=== PATIENT | male | born 1980 | race Caucasian/White ===

== ENCOUNTER → 2016-09-07 | Outpatient (REF) | payer OTHER ==
[2016-09-07 13:04] LABS: BASO % 0.3 % (0.0-1.0); EOS # 0.2 K/mm3 (0.0-0.50); EOS % 1.5 % (0.0-3.0); LARGE UNSTAINED CELL # 0.2 K/mm3 (0.0-0.4); LARGE UNSTAINED CELL % 1.1 % (0.0-4.0); LYMPH # 2.4 K/mm3 (1.5-4.5); LYMPH % 14.4 % (24.0-44.0); MEAN CORPUSCULAR HEMOGLOBIN 30.1 pg (27.0-33.0); MEAN CORPUSCULAR HGB CONC 33.1 g/dl (32.0-36.5); MEAN CORPUSCULAR VOLUME 90.8 fl (80.0-96.0); MONO # 0.8 K/mm3 (0.0-0.8); MONO % 5.4 % (0.0-5.0); NEUTROPHILS # 12.1 K/mm3 (1.8-7.7); NEUTROPHILS % 77.3 % (36.0-66.0); PLATELET COUNT, AUTOMATED 335 k/mm3 (150-450); RED CELL DISTRIBUTION WIDTH 13.4 % (11.5-14.5); WHITE BLOOD COUNT 15.7 K/mm3 (4.0-10.0)
== END ==
LOC: M SFHCPLAZ 09:14
PROVIDERS: ATTEND Physician Assistant Medical
DX: Z85.47 Personal history of malignant neoplasm of testis (principal); E78.00 Pure hypercholesterolemia, unspecified

== ENCOUNTER → 2016-09-09 | Outpatient (REF) | payer OTHER | LOC: M SFHCPLAZ 11:04 | PROVIDERS: ATTEND Physician Assistant Medical | DX: J02.9 Acute pharyngitis, unspecified (principal) ==

== ENCOUNTER → 2016-09-14 | Outpatient (REF) | payer OTHER ==
[2016-09-14 18:13] LABS: BASO % 0.4 % (0.0-1.0); EOS # 0.3 K/mm3 (0.0-0.50); EOS % 3.4 % (0.0-3.0); LARGE UNSTAINED CELL # 0.1 K/mm3 (0.0-0.4); LARGE UNSTAINED CELL % 1.5 % (0.0-4.0); LYMPH # 2.4 K/mm3 (1.5-4.5); MEAN CORPUSCULAR HEMOGLOBIN 29.1 pg (27.0-33.0); MEAN CORPUSCULAR HGB CONC 32.8 g/dl (32.0-36.5); MEAN CORPUSCULAR VOLUME 88.8 fl (80.0-96.0); MONO # 0.5 K/mm3 (0.0-0.8); MONO % 5.3 % (0.0-5.0); NEUTROPHILS # 5.5 K/mm3 (1.8-7.7); NEUTROPHILS % 63.4 % (36.0-66.0); PLATELET COUNT, AUTOMATED 322 k/mm3 (150-450); RED CELL DISTRIBUTION WIDTH 13.5 % (11.5-14.5); WHITE BLOOD COUNT 8.6 K/mm3 (4.0-10.0)
== END ==
LOC: M SFHCPLAZ 12:51
PROVIDERS: ATTEND Physician Assistant Medical
DX: D72.821 Monocytosis (symptomatic) (principal)

== ENCOUNTER → 2017-01-16 | Outpatient (REF) | payer OTHER, MEDICAID ==
[2017-01-23 08:07] LABS: BENZODIAZEPINES, URINE SCREEN Negative ng/mL (Cutoff=200); BENZOYLECGONINE (GC/MS) 459 ng/mL (Cutoff=150); METHADONE, URINE SCREEN Negative ng/mL (Cutoff=300); OPIATES, URINE Positive ng/mL (Cutoff=300); pH, URINE 5.7 (4.5-8.9)
== END ==
LOC: M SFHCPLAZ 11:27
PROVIDERS: ATTEND Physician Assistant Medical
DX: M51.36 Other intervertebral disc degeneration, lumbar region (principal)

== ENCOUNTER → 2017-05-22 | Outpatient (CLI) | payer OTHER ==
[2017-05-22 08:51] LABS: MEAN CORPUSCULAR HEMOGLOBIN 29.4 pg (27.0-33.0); MEAN CORPUSCULAR HGB CONC 33.5 g/dl (32.0-36.5); MEAN CORPUSCULAR VOLUME 87.9 fl (80.0-96.0); PLATELET COUNT, AUTOMATED 399 10^3/uL (150-450); RED CELL DISTRIBUTION WIDTH 14.1 % (11.5-14.5)
--- NOTE | 2017-05-22 08:54 | REP ---
Clinical: Hypertension . Comparison: 01/21/2010 . Technique: PA and lateral. Findings: The mediastinum and cardiac silhouette are normal. The lung love are clear and without acute consolidation, effusion, or pneumothorax. The skeletal structures are intact and normal. Impression: 1. No acute cardiopulmonary process. Signed by Josue Padilla MD 05/22/2017 08:45 A
[2017-05-22 09:32] LABS: ALBUMIN 3.8 GM/DL (3.2-5.2); ALBUMIN/GLOBULIN RATIO 1.19 (1.00-1.93); ALKALINE PHOSPHATASE 98 U/L (45-117); ALT/SGPT 25 U/L (12-78); ANION GAP 8 MEQ/L (8-16); AST/SGOT 12 U/L (7-37); BILIRUBIN,TOTAL 0.5 MG/DL (0.2-1.0); BLOOD UREA NITROGEN 13 MG/DL (7-18); CALCIUM LEVEL 9.2 MG/DL (8.5-10.1); CARBON DIOXIDE LEVEL 24 MEQ/L (21-32); CHLORIDE LEVEL 108 MEQ/L (98-107); CHOLESTEROL LEVEL 320 MG/DL (<200); CREATININE FOR GFR 0.88 MG/DL (0.70-1.30); GLOMERULAR FILTRATION RATE > 60.0 (>60); GLUCOSE, FASTING 100 MG/DL (70-105); POTASSIUM SERUM 4.2 MEQ/L (3.5-5.1); SODIUM LEVEL 140 MEQ/L (136-145); TRIGLYCERIDES LEVEL 225 MG/DL (<150)
--- NOTE | 2017-05-22 21:09 | ECGEPIP ---
Stationary ECG Study [facility] Test Date: 2017-05-22 Pat Name: GAMA MINER Department: Room: - Gender: M Customer Relations Coordinator: JOLLY : 1980 Requested By: Eboni Salgado Order Number: [id number] Reading MD: Dashawn Junior Measurements Intervals [place] Rate: 80 P: 48 MI: 136 QRS: 70 QRSD: 102 T: 42 QT: 363 QTc: 420 Interpretive Statements Normal sinus rhythm Early repolarization Comparison tracing not on file Electronically Signed On 05-22-2017 21:08:47 EST by Dashawn Junior
== END ==
LOC: M LAB 08:01
PROVIDERS: ATTEND Family Medicine
DX: I10 Essential (primary) hypertension (principal)

== ENCOUNTER → 2019-09-07 | Outpatient (CLI) | payer MEDICAID, OTHER ==
[~2019-09-07] MED LIST: BACT800T5 PO; HYDR-3716 PO; SIMV40TA20 PO
--- NOTE | 2019-09-07 13:52 | REP ---
Lumbar spine series: Five views. History: Degenerative disc disease. Comparison study: June 02, 2008. Findings: Lumbar vertebral body heights are preserved. There is straightening of the normal lumbar lordosis. There is disc space narrowing at L5-S1 somewhat more pronounced than on the 2007 prior study with mild sclerosis and spur formation. Minimal spurring is seen at 4-5. Disc spaces are otherwise maintained. Pedicles and posterior elements are intact. Sacrum and SI joints are unremarkable. Psoas margins are symmetric. There are surgical clips in the central abdomen. Impression: Degenerative disc changes at L5-S1 and L4-5, mild in degree. Otherwise negative. Electronically Signed by Enmanuel Thomas MD 09/07/2019 03:12 P
== END ==
LOC: M RAD 11:10
PROVIDERS: ATTEND Family Medicine
DX: M51.37 Other intervertebral disc degeneration, lumbosacral region (principal); M51.36 Other intervertebral disc degeneration, lumbar region; M54.30 Sciatica, unspecified side

== ENCOUNTER 2021-03-28 09:36 | Emergency (ER) | payer OTHER ==
[~2021-03-28] VITALS: Ht 175.3 cm; Wt 85.1 kg
[2021-03-28] MEDS ORDERED: MELO7.5T35 (09:44)
[2021-03-28] MEDS ORDERED: NS 1,000 ML IV ONE (10:25)
--- NOTE | 2021-03-28 10:45 | REP ---
INDICATION: upper abd pain into back ro free air. COMPARISON: None. FINDINGS: Supine and upright views of the abdomen show the intestinal gas pattern to be nonspecific. Gas and stool is seen throughout the colon within the rectosigmoid region. The organ silhouettes insofar as delineated appear unremarkable. No abdominal calcific densities are seen within the abdomen or pelvis. The accompanying single frontal view of the chest shows no free subdiaphragmatic air, cardiomegaly, infiltrates or effusions. IMPRESSION: Nonspecific intestinal gas pattern. <Electronically signed by Edward Murray > 03/28/21 [id number]
[2021-03-28 10:53] LABS: BASO % 0.3 % (0.0-1.0); EOS # 0.1 10^3/uL (0.0-0.5); EOS % 0.8 % (0.0-3.0); HEMATOCRIT 47.9 % (42.0-52.0); HEMOGLOBIN 15.9 g/dl (13.5-17.5); LYMPH # 1.9 10^3/uL (1.5-5.0); LYMPH % 14.6 % (24.0-44.0); MEAN CORPUSCULAR HEMOGLOBIN 28.9 pg (27.0-33.0); MEAN CORPUSCULAR HGB CONC 33.2 g/dl (32.0-36.5); MEAN CORPUSCULAR VOLUME 87.1 fl (80.0-96.0); MONO # 0.9 10^3/uL (0.0-0.8); MONO % 6.5 % (2.0-8.0); NEUTROPHILS # 10.1 10^3/uL (1.5-8.5); NEUTROPHILS % 77.4 % (36.0-66.0); PLATELET COUNT, AUTOMATED 360 10^3/uL (150-450); WHITE BLOOD COUNT 13.1 10^3/uL (4.0-10.0)
[2021-03-28 11:29] LABS: ALBUMIN 3.8 GM/DL (3.2-5.2); ALT/SGPT 17 U/L (12-78); BILIRUBIN,DIRECT 0.1 MG/DL (0.0-0.2); BILIRUBIN,TOTAL 0.5 MG/DL (0.2-1.0); BLOOD UREA NITROGEN 15 MG/DL (7-18); CARBON DIOXIDE LEVEL 28 MEQ/L (21-32); CHLORIDE LEVEL 110 MEQ/L (98-107); CK-MB VALUE MASS < 1.0 NG/ML (<3.6); CPK CREATINE PHOSPHOKINASE 97 U/L (39-308); CREATININE FOR GFR 0.91 MG/DL (0.70-1.30); GLOMERULAR FILTRATION RATE > 60.0 (>60); GLUCOSE, FASTING 109 MG/DL (70-100); LIPASE 56 U/L (73-393); MB/CK RELATIVE INDEX 1.03 (< OR =4); POTASSIUM SERUM 4.3 MEQ/L (3.5-5.1); SODIUM LEVEL 141 MEQ/L (136-145); TOTAL PROTEIN 7.6 GM/DL (6.4-8.2); TROPONIN I < 0.02 NG/ML (< 0.10)
[2021-03-28] MEDS ORDERED: ISOVUE-370 76% 100ML VIAL As Ordered ONE (11:44)
--- NOTE | 2021-03-28 12:08 | REP ---
INDICATION: LLQ pain, nausea vomiting. COMPARISON: None. TECHNIQUE: Standard helical technique after the intravenous administration of 100 cc Isovue 370 FINDINGS: The lung bases are clear The liver, gallbladder, spleen, pancreas, adrenal glands, and kidneys are within normal limits. The abdominal aorta and para-aortic regions are within normal limits. The bowel loops and the mesenteries are within normal limits. There is minimal descending colon and sigmoid colon diverticulosis. There is no free fluid or free air. The abdominal aorta and para-aortic regions are within normal limits. There is no evidence of a mass or adenopathy. The osseous structures are within normal limits. A small nodule seen in the subcutaneous adipose tissue of the left lumbar region consistent with a sebaceous cyst. IMPRESSION: No acute abnormalities. <Electronically signed by Edward Murray > 03/28/21 [id number]
[2021-03-28] MEDS ORDERED: ONDA4TAB6 PO (12:51)
[2021-03-28] MEDS ORDERED: KETOROLAC 30 MG/ML 1ML VIAL IV ONE (13:00)
[2021-03-28] MEDS ORDERED: ONDANSETRON 4MG/2ML VIAL IV ONE (13:00)
[2021-03-28 13:22] VITALS: BP 134/78
== END 2021-03-28 13:23 | disposition home or self-care (01) ==
LOC: M ED 09:36
DX: R10.10 Upper abdominal pain, unspecified (principal); R11.2 Nausea with vomiting, unspecified; R19.7 Diarrhea, unspecified; Z88.0 Allergy status to penicillin; F17.210 Nicotine dependence, cigarettes, uncomplicated
CPT/HCPCS: 74021; 74177; 80048; 80076; 81001; 82550; 82553; 83690; 85025; 96361; 96374; 99284; J1885; Q9967

== ENCOUNTER → 2021-11-09 | Outpatient (CLI) | payer OTHER ==
[~2021-11-09] MED LIST changes: +MELO7.5T35; +ONDA4TAB6 PO
== END ==
LOC: M PLAIMG 07:05
PROVIDERS: ATTEND Physician Assistant
DX: M51.36 Other intervertebral disc degeneration, lumbar region (principal)

== ENCOUNTER → 2022-05-11 | Outpatient (REF) | payer OTHER, MEDICAID ==
[2022-05-11 17:28] LABS: BASO # 0.1 10^3/uL (0.0-0.2); BASO % 0.7 % (0.0-1.0); EOS # 0.2 10^3/uL (0.0-0.5); EOS % 1.9 % (0.0-3.0); HEMATOCRIT 47.5 % (42.0-52.0); HEMOGLOBIN 15.6 g/dl (13.5-17.5); LYMPH # 1.9 10^3/uL (1.5-5.0); LYMPH % 22.2 % (24.0-44.0); MEAN CORPUSCULAR HEMOGLOBIN 28.9 pg (27.0-33.0); MEAN CORPUSCULAR HGB CONC 32.8 g/dl (32.0-36.5); MEAN CORPUSCULAR VOLUME 88.1 fl (80.0-96.0); MONO # 0.6 10^3/uL (0.0-0.8); MONO % 7.1 % (2.0-8.0); NEUTROPHILS # 5.8 10^3/uL (1.5-8.5); NEUTROPHILS % 67.9 % (36.0-66.0); PLATELET COUNT, AUTOMATED 328 10^3/uL (150-450); RED BLOOD COUNT 5.39 10^6/uL (4.30-6.10); WHITE BLOOD COUNT 8.5 10^3/uL (4.0-10.0)
[2022-05-11 18:19] LABS: ALBUMIN 3.7 GM/DL (3.2-5.2); ALT/SGPT 23 U/L (12-78); BILIRUBIN,TOTAL 0.5 MG/DL (0.2-1.0); BLOOD UREA NITROGEN 16 MG/DL (7-18); CALCIUM LEVEL 9.3 MG/DL (8.5-10.1); CARBON DIOXIDE LEVEL 25 MEQ/L (21-32); CHLORIDE LEVEL 109 MEQ/L (98-107); CHOLESTEROL LEVEL 231 MG/DL (<200); CHOLESTEROL RISK RATIO 5.021 (<5); CREATININE FOR GFR 0.77 MG/DL (0.70-1.30); GLOMERULAR FILTRATION RATE > 60.0 (>60); GLUCOSE, FASTING 91 MG/DL (70-100); HDL CHOLESTEROL 46 MG/DL (>40); LDL CHOLESTEROL 161 MG/DL (<100); NON-HDL-C 185 MG/DL; SODIUM LEVEL 139 MEQ/L (136-145); THYROID STIMULATING HORMONE 0.837 uIU/ML (0.358-3.740); TOTAL PROTEIN 6.8 GM/DL (6.4-8.2); TRIGLYCERIDES LEVEL 119 MG/DL (<150)
== END ==
LOC: M LAB REF 16:40
PROVIDERS: ATTEND Pediatrics
DX: E78.5 Hyperlipidemia, unspecified (principal); Z85.47 Personal history of malignant neoplasm of testis

== ENCOUNTER → 2022-07-27 | Outpatient (CLI) | payer MEDICAID, OTHER, SELFPAY | LOC: M CARPUL 09:53 | PROVIDERS: ATTEND Pediatrics | DX: R09.89 Other specified symptoms and signs involving the circulatory and respiratory systems (principal); Z92.21 Personal history of antineoplastic chemotherapy ==

== ENCOUNTER → 2022-08-31 | Outpatient (REF) | payer MEDICAID ==
[2022-08-31 17:14] LABS: ALKALINE PHOSPHATASE 112 U/L (46-116); ALT/SGPT 28 U/L (7.0-40); AST/SGOT 14 U/L (<34); BILIRUBIN,TOTAL 1.1 MG/DL (0.3-1.2); BLOOD UREA NITROGEN 17 MG/DL (9-23); CALCIUM LEVEL 9.7 MG/DL (8.5-10.1); CARBON DIOXIDE LEVEL 22 MMOL/L (20-31); CHLORIDE LEVEL 107 MMOL/L (98-107); CHOLESTEROL LEVEL 284 MG/DL (<200); CHOLESTEROL RISK RATIO 6.79 (<5); CREATININE FOR GFR 0.89 MG/DL (0.70-1.30); GLOMERULAR FILTRATION RATE > 60.0 (>60); GLUCOSE, FASTING 101 MG/DL (60-100); HDL CHOLESTEROL 41.8 MG/DL (>40); LDL CHOLESTEROL 221.2 MG/DL (<100); NON-HDL-C 242 MG/DL; POTASSIUM SERUM 4.5 MMOL/L (3.5-5.1); SODIUM LEVEL 138 MMOL/L (136-145); TRIGLYCERIDES LEVEL 105 MG/DL (<150)
== END ==
LOC: M LAB REF 16:17
PROVIDERS: ATTEND Pediatrics
DX: E78.5 Hyperlipidemia, unspecified (principal)